=== PATIENT | female | born 1945 | race Caucasian/White ===

== ENCOUNTER 2020-06-16 15:47 | Emergency (ER) | payer MEDICARE, OTHER ==
[~2020-06-16] VITALS: Ht 175 cm; Wt 99.0 kg
[~2020-06-16 15:47] MED LIST: ASPI-504 PO; DCS100C PO; HYDR-3720 PO; IBP800T PO; PSYL0.525 PO
--- NOTE | 2020-06-16 16:07 | ED Upper Extremity ---
General Chief Complaint: Upper Extremity Stated Complaint: RIGHT SHOULDER INJ Source: patient History of Present Illness Date Seen by Provider: Jun 16, 2020 Time Seen by Provider: 15:48 Initial Comments 74-year-old female presenting with complaints of right shoulder pain and decreased range of motion. She states that for the last month or more she has had pain and problems with the shoulder. She denies any known specific injury. It is worse after she lays on the right side or sleeps on her right arm. She usually has improvement in symptoms an hour or 2 but today her pain has lasted all day. She did take some Tylenol arthritis for 5 hours ago which has helped with her pain. It seems to be into the chest wall muscles as well as into the back of her shoulder towards her shoulder blade. She has tenderness to palpation at times as well as worse with movement. No numbness or decreased pulse/circulation. Allergies and Home Medications Allergies Coded Allergies: No Known Drug Allergies (Unverified , 05/19/13) Home Medications Aspirin 81 Mg Tab.chew, 81 MG PO DAILY, (Reported) Docusate Sodium 100 Mg Capsule, 1 CAP PO DAILY PRN for CONSTIPATION Prescribed by: CALLIE GUERIN on 05/30/13 0746 Hydrocodone Bit/Acetaminophen 1 Each Tablet, 1-2 TAB PO Q3H PRN for PAIN Prescribed by: CALLIE GUERIN on 05/30/13 0746 Ibuprofen 800 Mg Tablet, 1 TAB PO Q6H PRN for PAIN Prescribed by: CALLIE GUERIN on 05/30/13 0746 Meloxicam 7.5 Mg Tablet, 7.5 MG PO DAILY Prescribed by: MOJGAN MOHAN on 06/16/20 1724 Psyllium Husk 0.52 Gm Capsule, 2-6 CAP PO TID PRN for DIGESTION hEALTH, (Reported) Patient Home Medication List Home Medication List Reviewed: Yes Review of Systems Constitutional: No chills, No fever EENTM: no symptoms reported Respiratory: no symptoms reported Cardiovascular: no symptoms reported Gastrointestinal: no symptoms reported Genitourinary: no symptoms reported Musculoskeletal: see HPI Skin: no symptoms reported Psychiatric/Neurological: No Symptoms Reported Past Zjbxitx-Vdttvf-Tbujpl Hx Past Med/Social Hx: Reviewed Nursing Past Med/Soc Hx Past Medical History Reproductive Disorders: Yes (UTERINE PROLAPSE) Family Medical History Cancer 09 SISTER (BREAST) Family history: Cardiovascular disease 03 FATHER Family history: Hypertension 03 MOTHER Family history: Thyroid disorder 09 SISTER Myocardial infarction 03 MOTHER 09 BROTHER Stroke 03 MOTHER No Family History of: Abdominal aortic aneurysm Alcoholism Congestive heart failure Family history: Alzheimer's disease Family history: Arthritis Family history: Asthma Family history: Coronary thrombosis Family history: Diabetes mellitus Family history: Gastrointestinal disease Hereditary disease History of - anemia History of - respiratory disease Parkinson's disease Prostate cancer Psychotic disorder Seizure disorder Physical Exam Vital Signs Vital Signs - First Documented 06/16/20 15:50 Temp 36.5 Pulse 89 Resp 20 B/P (MAP) 152/73 (99) Pulse Ox 97 O2 Delivery Room Air Capillary Refill : Height, Weight, BMI Height: 5'9.00" Weight: 228lbs. oz. [id number]; BMI Method: General Appearance: WD/WN, no apparent distress HEENT: PERRL/EOMI Neck: non-tender, full range of motion, supple, normal inspection Cardiovascular: normal peripheral pulses Respiratory: chest non-tender Shoulder: no evidence of injury; No deformity, No ecchymosis; limited ROM (decreased abduction ); No soft tissue tenderness, No swelling Elbow/Forearm: normal inspection, non-tender, normal ROM Neurologic/Psychiatric: no motor/sensory deficits, alert, oriented x 3 Skin: normal color, warm/dry Progress/Results/Core Measures Results/Orders My Orders Orders - MOJGAN MOHAN MD Shoulder 3 View Right (06/16/20 16:03) Vital Signs/I&O 06/16/20 06/16/20 15:50 17:23 Temp 36.5 36.5 Pulse 89 89 Resp 20 20 B/P (MAP) 152/73 (99) 152/73 (99) Pulse Ox 97 97 O2 Delivery Room Air Progress Progress Note : Progress Note check xrays of right shoulder. 1722 xrays show degenerative arthritic changes. Treat with meloxicam for inflammation to minimize stomach irritation. May need to increase to bid dosing if not improving or have PT or MRI with pcp. Diagnostic Imaging Diagonstic Imaging: Xray Plain Films/CT/US/NM/MRI: other (shoulder) Comments NAME: YASSINE VIZCAINO [facility] REC#: [id number] PT STATUS: REG ER : 1945 PHYSICIAN: MOJGAN MOHAN MD ADMIT DATE: 06/16/20/ER FS Signed Date of Exam:06/16/20 SHOULDER 3 VIEW RIGHT INDICATION: Chronic shoulder pain with decreased range of motion. EXAMINATION: Three views were obtained. FINDINGS: osteoarthritic change of the right glenohumeral joint. Some questionable volume loss in the humeral head. There also appears to be an old mid right humeral diaphyseal fracture. There is no acute fracture or dislocation. Right lung is clear. Soft tissues are unremarkable. IMPRESSION: 1. Marked osteoarthritic change of the glenohumeral joint with prominent osteophyte projected inferomedially. There is questionable mild volume loss in the humeral head. 2. No acute fracture or dislocation. Dictated by: Dictated on workstation # [id number] Dict: 06/16/201650 Trans: 06/16/201723 PJE [id number] Interpreted by: CASH CORTES MD Electronically signed by: CASH CORTES MD 06/16/201723 Departure Impression Primary Impression: Right shoulder pain Qualified Codes: M25.511 - Pain in right shoulder; G89.29 - Other chronic pain Additional Impression: Arthritis of shoulder region, right, degenerative Qualified Codes: M19.011 - Primary osteoarthritis, right shoulder Disposition: 01 HOME, SELF-CARE Condition: Stable Departure-Patient Inst. Decision time for Depature: 17:24 Referrals: SELFARMANDO MD (PCP/Family) Primary Care Physician Patient Instructions: Shoulder Pain ED, Osteoarthritis (DC) Add. Discharge Instructions: Take the meloxicam to treat for inflammation and pain in shoulder. The medicine starts at a dose of once a day and then increases to twice a day if needed to help with inflammation and pain Try alternating ice and heat to shoulder to help with pain and inflammation. Check with clinic and you may also benefit from physical therapy to help with arthritis changes of the shoulder. If persists then they may order an MRI to look at joint and soft tissue in more detail All discharge instructions reviewed with patient and/or family. Voiced understanding. Scripts Meloxicam (Meloxicam) 7.5 Mg Tablet 7.5 MG PO DAILY for shoulder pain for 15 Days, #15 TAB 0 Refills Prov: MOJGAN MOHAN MD 06/16/20 MOJGAN MOHAN MD Jun 16, 2020 16:07
--- NOTE | 2020-06-16 17:03 | Diagnostic Imaging Report ---
INDICATION: Chronic shoulder pain with decreased range of motion. EXAMINATION: Three views were obtained. FINDINGS: osteoarthritic change of the right glenohumeral joint. Some questionable volume loss in the humeral head. There also appears to be an old mid right humeral diaphyseal fracture. There is no acute fracture or dislocation. Right lung is clear. Soft tissues are unremarkable. IMPRESSION: 1. Marked osteoarthritic change of the glenohumeral joint with prominent osteophyte projected inferomedially. There is questionable mild volume loss in the humeral head. 2. No acute fracture or dislocation. Dictated by: Dictated on workstation # [id number]
[2020-06-16 17:23] VITALS: BP 152/73
[2020-06-16] MEDS ORDERED: MELO7.5T46 PO (17:24)
== END 2020-06-16 17:26 | disposition home or self-care (01) ==
LOC: EDUNIT# 15:47 → ER FS 15:50
DX: M19.011 Primary osteoarthritis, right shoulder (principal); Z79.82 Long term (current) use of aspirin
CPT/HCPCS: 73030

== ENCOUNTER 2020-09-07 09:21 | Emergency (ER) | payer MEDICARE, OTHER ==
[~2020-09-07] VITALS: Ht 175 cm; Wt 99.0 kg
[~2020-09-07 09:21] MED LIST changes: +MELO7.5T46 PO
[2020-09-07 09:29] VITALS: BP 151/90
[2020-09-07] MEDS ORDERED: MELO7.5T46 PO (09:45)
--- NOTE | 2020-09-07 09:45 | ED Upper Extremity ---
General Chief Complaint: Upper Extremity Stated Complaint: RIGHT SHOULDER/ARM/HAND PAIN Nursing Triage Note: CHRONIC ARM /ARTHRITIS PAIN IN THE RIGHT SHOULDER AND ARM History of Present Illness Date Seen by Provider: Sep 07, 2020 Time Seen by Provider: 09:33 Initial Comments 75-year-old female presents with right shoulder pain for the past several days. States she did overuse it the day prior and has had similar episodes like this, including in June of this year. She was seen in this ER and given prescription for meloxicam after shoulder x-ray and diagnosis of "arthritis". She has not followed up with her primary care doctor since that time. Pain is in the right shoulder and sometimes radiates down her right arm. Associated pain with movement and difficulty finding a position of comfort. She cannot sleep on her right shoulder and has been sleeping in a chair to try to get comfortable at night. Allergies and Home Medications Allergies Coded Allergies: No Known Drug Allergies (Unverified , 05/19/13) Home Medications Aspirin 81 Mg Tab.chew, 81 MG PO DAILY, (Reported) Docusate Sodium 100 Mg Capsule, 1 CAP PO DAILY PRN for CONSTIPATION Prescribed by: CALLIE GUERIN on 05/30/13 0746 Hydrocodone Bit/Acetaminophen 1 Each Tablet, 1-2 TAB PO Q3H PRN for PAIN Prescribed by: CALLIE GUERIN on 05/30/13 0746 Ibuprofen 800 Mg Tablet, 1 TAB PO Q6H PRN for PAIN Prescribed by: CALLIE GUERIN on 05/30/13 0746 Meloxicam 7.5 Mg Tablet, 7.5 MG PO DAILY Prescribed by: JUSTINA SCHULER on 09/07/20 0945 Psyllium Husk 0.52 Gm Capsule, 2-6 CAP PO TID PRN for DIGESTION hEALTH, (Reported) Patient Home Medication List Home Medication List Reviewed: Yes Review of Systems Constitutional: no symptoms reported; No chills, No dizziness, No fever, No malaise, No weakness EENTM: no symptoms reported Respiratory: No cough, No short of breath Cardiovascular: No chest pain, No edema, No palpitations, No syncope Gastrointestinal: no symptoms reported Musculoskeletal: see HPI; No back pain; joint pain; No joint swelling; muscle pain, muscle stiffness; No muscle cramps, No muscle twitching, No muscle weakness, No neck pain Skin: No change in color, No rash Past Gqqpvei-Ntkzlj-Wuysoc Hx Patient Social History Use of E-Cig and/or Vaping dev: No Substance use?: No Alcohol Use?: No Pt feels they are or have been: No Past Medical History Surgeries: Yes (masectomy) Bladder Surgery, Breast, Hysterectomy, Rectal, Tonsillectomy, Tubal Ligation Respiratory: No Cardiac: Yes High Cholesterol Neurological: No Reproductive Disorders: Yes (UTERINE PROLAPSE) [employer] History: Hysterectomy Genitourinary: No Gastrointestinal: No Musculoskeletal: Yes Arthritis Endocrine: Yes Diabetes, Non-Insulin dep HEENT: No Cancer: Yes Breast Did You Recieve Any Treatments: Yes What Type of Treatment Did You: Chemotherapy, Surgical Intervention Psychosocial: No Integumentary: No Blood Disorders: No Family Medical History Cancer 09 SISTER (BREAST) Family history: Cardiovascular disease 03 FATHER Family history: Hypertension 03 MOTHER Family history: Thyroid disorder 09 SISTER Myocardial infarction 03 MOTHER 09 BROTHER Stroke 03 MOTHER No Family History of: Abdominal aortic aneurysm Alcoholism Congestive heart failure Family history: Alzheimer's disease Family history: Arthritis Family history: Asthma Family history: Coronary thrombosis Family history: Diabetes mellitus Family history: Gastrointestinal disease Hereditary disease History of - anemia History of - respiratory disease Parkinson's disease Prostate cancer Psychotic disorder Seizure disorder Physical Exam Vital Signs Vital Signs - First Documented 09/07/20 09:29 Temp 36.3 Pulse 81 Resp 18 B/P (MAP) 151/90 (110) Pulse Ox 98 O2 Delivery Room Air Capillary Refill : Less Than 3 Seconds Height, Weight, BMI Height: 5'9.00" Weight: 228lbs. oz. 103.914910zt; 32.00 BMI Method: General Appearance: WD/WN, no apparent distress HEENT: normal ENT inspection Neck: non-tender, full range of motion, supple Cardiovascular: regular rate, rhythm, no edema, no JVD Respiratory: chest non-tender, lungs clear, normal breath sounds Back: normal inspection, no CVA tenderness, no vertebral tenderness Shoulder: normal inspection, no evidence of injury; No asymmetry, No bone tenderness, No deformity, No ecchymosis; limited ROM (2 to pain), soft tissue tenderness (R lateral shoulder); No swelling Elbow/Forearm: normal inspection, non-tender, no evidence of injury, normal ROM, Right Wrist: Yes normal inspection, Yes non-tender, Yes no evidence of injury, Yes normal ROM Hand: normal inspection, non-tender, no evidence of injury, normal ROM, Right Neurologic/Tendon: normal motor functions, normal tendon functions Neurologic/Psychiatric: no motor/sensory deficits, alert, normal mood/affect, oriented x 3 Skin: normal color, warm/dry Progress/Results/Core Measures Results/Orders Vital Signs/I&O 09/07/20 09:29 Temp 36.3 Pulse 81 Resp 18 B/P (MAP) 151/90 (110) Pulse Ox 98 O2 Delivery Room Air Blood Pressure Mean: 110 Departure Impression Primary Impression: Arthritis of shoulder region, right, degenerative Qualified Codes: M19.011 - Primary osteoarthritis, right shoulder Disposition: HOME, SELF-CARE Condition: Stable Departure-Patient Inst. Decision time for Depature: 09:44 Referrals: ARMANDO HERNANDEZ MD (PCP/Family) Primary Care Physician Patient Instructions: Osteoarthritis (DC) Add. Discharge Instructions: Follow up with Dr HERNANDEZ regarding your right shoulder pain in 2 weeks All discharge instructions reviewed with patient and/or family. Voiced understmavis petty. Scripts Meloxicam (Meloxicam) 7.5 Mg Tablet 7.5 MG PO DAILY for shoulder pain for 15 Days, #15 TAB 0 Refills Prov: JUSTINA SCHULER DO 09/07/20 JUSTINA SCHULER DO Sep 07, 2020 09:45
== END 2020-09-07 09:46 | disposition home or self-care (01) ==
LOC: EDUNIT# 09:21 → ER FS 09:23
DX: M19.011 Primary osteoarthritis, right shoulder (principal); E11.9 Type 2 diabetes mellitus without complications; Z79.82 Long term (current) use of aspirin
CPT/HCPCS: 99282